=== PATIENT | male | born 1970 | race Caucasian/White ===

== ENCOUNTER 2016-10-15 08:59 | Inpatient (IN) | payer MEDICAID ==
[~2016-10-15] VITALS: Ht 180.3 cm; Wt 104.0 kg
[~2016-10-15 08:59] MED LIST: BACTRIM1 TAB PO; CIPRO500 MG PO; IMODIUM2 MG PO; LAC PO; TRAMADOL50 M1 PO
[2016-10-15 10:20] LABS: PLATELET COUNT 247 x10^3mcL (130-400); RED CELL DISTRIBUTION WIDTH 13.6 % (11.5-14.5)
[2016-10-15 11:11] LABS: CARBON DIOXIDE 21.5 mmol/L (21-32); CREATININE SERUM 1.5 mg/dL (0.7-1.3); POTASSIUM SERUM 3.6 mmol/L (3.5-5.1); TOTAL PROTEIN, SERUM 7.3 g/dL (6.4-8.2)
[2016-10-15 11:12] LABS: ALBUMIN 3.3 g/dL (3.4-5.0); BILIRUBIN TOTAL 0.5 mg/dL (0.20-1.00); CALCIUM 8.2 mg/dL (8.5-10.1)
[2016-10-15 11:26] LABS: BAND NEUTROPHIL 20 % (0-10); BASOPHIL 0 % (0-2); MONOCYTE 6 % (0-7); PLATELET MORPHOLOGY GIANT PLATELET SEEN; SEGMENTED NEUTROPHILS 66 % (37-75); rbc morphology (normal/abnorm) ABNORMAL (NORMAL); tear drop cell (dacryocyte) 1+
[2016-10-15 13:30] VITALS: BP 117/75
[2016-10-15 15:20] LABS: MAGNESIUM 1.4 mg/dL (1.8-2.4); PHOSPHOROUS 2.5 mg/dL (2.5-4.9)
[2016-10-15 15:31] LABS: T3 TOTAL 0.71 ng/mL
[2016-10-15 15:39] LABS: FREE T4 0.99 ng/dL (0.76-1.46); FREE THYROXINE INDEX 1.7 ug/dL (1.4-4.5); T4(THYROXINE) 5.3 ug/dL (4.7-13.3)
[2016-10-15 16:30] VITALS: BP 112/70
[2016-10-15 20:00] VITALS: BP 99/61
[2016-10-15 20:59] LABS: UA SPECIFIC GRAVITY <=1.005 (1.005-1.035); microscopic required? YES; urine erythrocyte 1+ (NEGATIVE)
[2016-10-16 05:35] VITALS: BP 110/77
[2016-10-16 06:28] LABS: BASOPHIL % 0.2 % (0-2); PLATELET COUNT 216 x10^3mcL (130-400); RED CELL DISTRIBUTION WIDTH 14.1 % (11.5-14.5)
[2016-10-16 07:01] LABS: CALCIUM 8.2 mg/dL (8.5-10.1); CARBON DIOXIDE 23.6 mmol/L (21-32); CHLORIDE SERUM 103 mmol/L (98-107); GFR1 > 60 mL/min; GLUCOSE SERUM 118 mg/dL (74-106); POTASSIUM SERUM 3.8 mmol/L (3.5-5.1); SODIUM SERUM 136 mmol/L (136-145)
[2016-10-16 07:14] LABS: CHOLESTEROL/HDL RATIO 4.7
[2016-10-16 10:38] VITALS: BP 105/69
[2016-10-16 17:20] VITALS: BP 111/80
[2016-10-16 22:49] VITALS: BP 112/79
[2016-10-17 05:23] VITALS: BP 116/73
[2016-10-17 06:58] LABS: BASOPHIL % 0.3 % (0-2); PLATELET COUNT 221 x10^3mcL (130-400); RED CELL DISTRIBUTION WIDTH 14.1 % (11.5-14.5)
[2016-10-17 07:18] LABS: CALCIUM 7.9 mg/dL (8.5-10.1); CARBON DIOXIDE 25.3 mmol/L (21-32); CHLORIDE SERUM 107 mmol/L (98-107); GFR1 > 60 mL/min; GLUCOSE SERUM 114 mg/dL (74-106); MAGNESIUM 2.2 mg/dL (1.8-2.4); PHOSPHOROUS 2.4 mg/dL (2.5-4.9); POTASSIUM SERUM 3.9 mmol/L (3.5-5.1); SODIUM SERUM 138 mmol/L (136-145)
[2016-10-17] MEDS ORDERED: LAC PO (10:16)
[2016-10-17 10:42] VITALS: BP 116/73
== END 2016-10-17 11:46 | disposition home or self-care (01) | DRG 720 ==
LOC: ED 08:59 → DU 11:34 → MU 11:34 → DU 13:00 → MU 10-16 06:52
PROVIDERS: Emergency Medicine; ADMIT Family Medicine
DX: A41.9 Sepsis, unspecified organism (principal); N17.0 Acute kidney failure with tubular necrosis; R65.20 Severe sepsis without septic shock; E87.1 Hypo-osmolality and hyponatremia; K52.9 Noninfective gastroenteritis and colitis, unspecified; E86.0 Dehydration; R31.9 Hematuria, unspecified; E83.42 Hypomagnesemia; E44.0 Moderate protein-calorie malnutrition; F10.10 Alcohol abuse, uncomplicated; Z68.32 Body mass index [BMI] 32.0-32.9, adult
CPT/HCPCS: 83880; 84439; 87046; 87046-59; J1956; J2270; J2405; J3475; J3490; J7030; Q0092

== ENCOUNTER 2020-03-09 13:05 | Emergency (ER) | payer MEDICAID | END 2020-03-09 14:12 | disposition left against medical advice (07) | LOC: ED 13:05 | DX: Z53.21 Procedure and treatment not carried out due to patient leaving prior to being seen by health care provider (principal) ==